=== PATIENT | female | born 1970 | race African-American/Black ===

== ENCOUNTER 2016-09-14 22:22 | Emergency (ER) | payer MEDICARE | END 2016-09-15 00:14 | disposition home or self-care (01) | LOC: D.ER 22:22 | DX: K59.00 Constipation, unspecified (principal); F90.9 Attention-deficit hyperactivity disorder, unspecified type; J45.909 Unspecified asthma, uncomplicated; F20.9 Schizophrenia, unspecified ==

== ENCOUNTER 2016-09-21 14:13 | Emergency (ER) | payer MEDICARE | END 2016-09-21 16:19 | disposition home or self-care (01) | LOC: D.ER 14:13 | DX: N89.8 Other specified noninflammatory disorders of vagina (principal); F90.9 Attention-deficit hyperactivity disorder, unspecified type; F20.9 Schizophrenia, unspecified ==